=== PATIENT | male | born 1950 | race Caucasian/White ===

== ENCOUNTER 2016-08-29 07:16 | Emergency (ER) | payer OTHER, BC ==
[~2016-08-29] VITALS: Ht 190.5 cm; Wt 114.7 kg
[~2016-08-29 07:16] MED LIST: ACIPHEX20 MG; ACIPHEX20 MG PO; ALLOPURINOL300 MG PO; ALTACE10 M1 PO; ALTACE10 MG PO; AUGMENTIN875 MG PO; BAYER CHILDREN'81 M1 PO; CADUET 10/101 TABLET; CADUET 10/101 TABLET PO; IRON325 M1 PO; JANUMET XR 1001 EACH PO; LIPITOR20 MG PO; LIPITOR40 MG PO; LOW DOSE ASPIRI81 M1 PO; METOPROLOL SUCC50 MG PO; NORVASC10 MG PO; OXYCODONE HCL5 MG PO; PERCOCET 5/31 TABLET PO; PREVACID30 MG PO; RAMIPRIL10 MG PO; SPIRIVA1 INHALATI IH; STOOL SOFTENER100 M1 PO; TOPROL XL100 MG PO; XARELTO10 MG PO; ZETIA10 MG PO; ZOFRAN4 MG PO
[2016-08-29] MEDS ORDERED: AUGMENTIN875 MG PO (07:31)
[2016-08-29] MEDS ORDERED: FLONASE16 G1 BOTH NARES (07:31)
[2016-08-29 08:04] VITALS: BP 148/80
== END 2016-08-29 08:05 | disposition home or self-care (01) ==
LOC: EME 07:16
DX: J01.90 Acute sinusitis, unspecified (principal); R51 Headache; R05 Cough; I10 Essential (primary) hypertension; R73.03 Prediabetes; F17.200 Nicotine dependence, unspecified, uncomplicated
CPT/HCPCS: 71020; 99281; 99283